=== PATIENT | male | born 1965 | race Hispanic/Latino ===

== ENCOUNTER 2017-09-23 06:24 | Emergency (ER) | payer BC ==
[~2017-09-23] VITALS: Ht 182.9 cm; Wt 121.3 kg
[~2017-09-23 06:24] MED LIST: ALBUTEROL SULF8.5 GM IH; AZITHROMYCIN250 MG1 PO; GUAIFENESIN WI120 ML PO; MEDROL DOSEPAK4 MG PO; NEURONTIN300 MG PO; NYQUIL D COLD295 ML PO; ROBAXIN750 MG PO; ROBITUSSIN AC,T10 ML PO; TYLENOL REGULA325 MG PO; ULTRAM50 MG PO
[2017-09-23 07:04] LABS: BASOPHIL (%) 0.3 % (0-1); EOSINOPHIL (%) 0.1 % (0-5); HEMATOCRIT 39.6 % (38.0-50.0); HEMOGLOBIN 13.8 G/DL (12.5-16.6); IMMATURE GRANULOCYTE (%) 1.7 % (0.0-0.7); LYMPHOCYTE COUNT 1.6 K/uL (1.0-2.8); MCHC 34.8 G/DL (30.0-36.0); MCV 86.1 FL (86-99); MONOCYTE (%) 3.4 % (3-12); MONOCYTE COUNT 0.4 K/uL (0-0.8); NEUTROPHIL (%) 80.5 % (45-76); NEUTROPHIL COUNT 9.1 K/uL (1.8-6.4); PLATELET COUNT 265 K/uL (156-360); RBC DIS.WIDTH-CV 13.2 % (11.8-14.6); RBC DIS.WIDTH-SD 41.1 % (39-53); WHITE BLOOD COUNT 11.3 K/uL (4.1-10.2)
[2017-09-23 07:45] LABS: CHLORIDE 105 MEQ/L (99-109); CREATININE 0.7 MG/DL (0.6-1.3); GFR ESTIMATE (CALCULATED) > 59 mL/min/ (58.99-99999); GLUCOSE 184 mg/dL (70-99); POTASSIUM 4.3 MEQ/L (3.7-5.4); SODIUM 137 MEQ/L (136-147); UREA NITROGEN (BUN) 19 mg/dL (9-23)
[2017-09-23 09:10] VITALS: BP 160/83
== END 2017-09-23 09:10 | disposition home or self-care (01) ==
LOC: EME 06:24
PROVIDERS: Emergency Medicine
DX: J06.9 Acute upper respiratory infection, unspecified (principal); R51 Headache
CPT/HCPCS: 70450; 71046; 80048; 85025; 94640; 99281; 99284

== ENCOUNTER 2017-12-08 11:03 | Emergency (ER) | payer BC ==
[~2017-12-08] VITALS: Ht 182.9 cm; Wt 121.9 kg
[2017-12-08 13:24] LABS: HEMATOCRIT 39.5 % (38.0-50.0); HEMOGLOBIN 13.9 G/DL (12.5-16.6); MCH 29.9 PG (29.0-34.0); MCHC 35.2 G/DL (30.0-36.0); MCV 84.9 FL (86-99); PLATELET COUNT 254 K/uL (156-360); RBC DIS.WIDTH-CV 12.9 % (11.8-14.6); RBC DIS.WIDTH-SD 39.7 % (39-53); RED BLOOD COUNT 4.65 M/uL (4.00-5.50); WHITE BLOOD COUNT 10.7 K/uL (4.1-10.2)
[2017-12-08 13:56] LABS: CHLORIDE 104 MEQ/L (99-109); POTASSIUM 4.2 MEQ/L (3.7-5.4); SODIUM 137 MEQ/L (136-147)
[2017-12-08 14:01] LABS: CREATININE 0.9 MG/DL (0.6-1.3); GFR ESTIMATE (CALCULATED) > 59 mL/min/ (58.99-99999); GLUCOSE 130 mg/dL (70-99); UREA NITROGEN (BUN) 19 mg/dL (9-23)
[2017-12-08] MEDS ORDERED: ZOFRAN ODT8 MG PO (15:32)
[2017-12-08] MEDS ORDERED: MOTRIN600 MG PO (15:32)
[2017-12-08 15:45] VITALS: BP 118/70
== END 2017-12-08 16:10 | disposition home or self-care (01) ==
LOC: EME 11:03
PROVIDERS: Physician Assistant
DX: B34.9 Viral infection, unspecified (principal); J32.9 Chronic sinusitis, unspecified; Z95.9 Presence of cardiac and vascular implant and graft, unspecified; Z87.828 Personal history of other (healed) physical injury and trauma
CPT/HCPCS: 70450; 80048; 81003; 85027; 99281; 99285; J0780; J1885; J7030